=== PATIENT | female | born 1960 | race Caucasian/White ===

== ENCOUNTER 2016-12-14 13:13 | Emergency (ER) | payer BC, MEDICAID ==
[~2016-12-14] VITALS: Ht 152.4 cm; Wt 90.0 kg
[~2016-12-14 13:13] MED LIST: ALPR1TAB2; ATEN25TA; ATEN50TA41 PO; BUPR200T2; DIAZ10TA PO; FURO-93; GABA-826 PO; HYDR12.547 PO; LAMO200T3 PO; METH750T87 PO; OMEP-110 PO; OXCA300T PO; OXYC-223; PARO12.517 PO; PROM50AM6; QUET25TA5 PO; SIMV20TA3 PO; TRAM50TA2 PO
[2016-12-14] MEDS ORDERED: SODIUM CHLORIDE 0.9% 1,000ML IVBOLUS ONE (13:30)
[2016-12-14 14:24] LABS: BLOOD UREA NITROGEN 11 mg/dL (7-18)
[2016-12-14 14:28] LABS: ASPARTATE AMINO TRANSFERASE 16 U/L (15-37)
[2016-12-14 17:09] VITALS: BP 157/72
== END 2016-12-14 17:13 | disposition home or self-care (01) ==
LOC: ED 17:07
DX: R55 Syncope and collapse (principal); G89.29 Other chronic pain; M54.9 Dorsalgia, unspecified; Z86.14 Personal history of Methicillin resistant Staphylococcus aureus infection
CPT/HCPCS: 36415; 70450; 80053; 81003; 85025; 93005; 99285

== ENCOUNTER 2017-11-03 18:27 | Observation (INO) | payer MEDICAID ==
[~2017-11-03] VITALS: Ht 152.4 cm; Wt 87.0 kg
[~2017-11-03 18:27] MED LIST changes: +GABA400C PO; +HYDR-3240 PO; +LAMO100T5 PO; -OXYC-223; +OXYC-306; +QUET100T4 PO
[2017-11-03] MEDS ORDERED: ATOR-2 PO (18:42)
[2017-11-03] MEDS ORDERED: HYDR25TA11 PO (18:42)
[2017-11-03] MEDS ORDERED: QUET100T PO (18:42)
[2017-11-03] MEDS ORDERED: FOLI-17 PO (18:42)
[2017-11-03] MEDS ORDERED: MELO7.5T31 PO (18:42)
[2017-11-03] MEDS ORDERED: BUPR1FIL3 SUBD (18:42)
[2017-11-03 19:17] LABS: BASOPHILS # (AUTO) 0.02 x10^3/uL (0-0.1); BASOPHILS % (AUTO) 1 % (0-1); EOSINOPHILS # (AUTO) 0.12 x10^3/uL (0-0.4); EOSINOPHILS % (AUTO) 3 % (1-7); LYMPHOCYTES # (AUTO) 1.45 x10^3/uL (1-3.4); LYMPHOCYTES % (AUTO) 31 % (22-44); MD NO; MEAN CORPUSCULAR HEMOGLOBIN 30.1 pg (27.0-34.8); MEAN CORPUSCULAR HGB CONC 33.5 g/dL (32.4-35.8); MEAN CORPUSCULAR VOLUME 89.9 fL (80-100); MEAN PLATELET VOLUME 7.4 fL (7.4-10.4); MONOCYTES # (AUTO) 0.42 x10^3/uL (0.2-0.8); MONOCYTES % (AUTO) 9 % (2-9); NEUTROPHILS # (AUTO) 2.75 x10^3/uL (1.8-6.8); NEUTROPHILS % (AUTO) 58 % (42-75); PLATELET COUNT 299 x10^3/uL (130-400); RED BLOOD COUNT 4.39 x10^6/uL (3.82-5.3); RED CELL DISTRIBUTION WIDTH 13.1 % (9.6-15.2)
[2017-11-03 19:18] LABS: ALBUMIN 3.8 g/dL (3.4-5.0); ANION GAP 7 mmol/L (5-15); CALCIUM 9.1 mg/dL (8.5-10.1); CHLORIDE 104 mmol/L (98-107)
[2017-11-03 19:20] LABS: ALANINE AMINOTRANSFERASE 17 U/L (12-78); ALKALINE PHOSPHATASE 102 U/L (45-117); BILIRUBIN,TOTAL 0.5 mg/dL (0.2-1.0); CREATININE 0.65 mg/dL (0.55-1.02); SALICYLATE LEVEL < 1.7 mg/dL (2.8-20.0); TOTAL PROTEIN 7.1 g/dL (6.4-8.2)
[2017-11-03 19:25] LABS: ACETAMINOPHEN < 2 mcg/mL (10-30)
[2017-11-03 19:25] LABS: AMPHETAMINE SCREEN, URINE Negative (Negative); BARBITURATE SCREEN, URINE Negative (Negative); BENZODIAZEPINE SCREEN, URINE Negative (Negative); CANNABINOID SCREEN, URINE Negative (Negative); COCAINE SCREEN, URINE Negative (Negative); METHADONE SCREEN, URINE Negative (Negative); OPIATE SCREEN, URINE Negative (Negative)
[2017-11-03] MEDS ORDERED: LORazepam 1MG TABLET ONE (21:52)
[2017-11-03] MEDS ORDERED: LORazepam 1MG TABLET PO ONE (22:00)
[2017-11-03] MEDS ORDERED: POLYETHYLENE GLYCOL 17 GM PACKET PO PRN (23:00)
[2017-11-03] MEDS ORDERED: ONDANSETRON ODT 4 MG PO PRN (23:00)
[2017-11-03] MEDS ORDERED: BISACODYL 10 MG SUPP PR PRN (23:00)
[2017-11-03] MEDS ORDERED: QUETIAPINE 100MG TABLET ONE (23:13)
[2017-11-03] MEDS ORDERED: GABAPENTIN 400 MG CAPSULE ONE (23:13)
[2017-11-03] MEDS: ATORVASTATIN 20 MG TABLET PO SCH (23:19)
[2017-11-03] MEDS: QUETIAPINE 100MG TABLET PO SCH (23:20)
[2017-11-03] MEDS: MELOXICAM 15 MG TABLET PO SCH (23:20)
[2017-11-03] MEDS: GABAPENTIN 400 MG CAPSULE PO SCH (23:20)
[2017-11-04] MEDS: PAROXETINE HCL 40 MG PO SCH (09:00)
[2017-11-04] MEDS ORDERED: BUPRENORPHINE HCL/NALOXONE 8-2MG FILM SL SCH (09:00)
[2017-11-04] MEDS ORDERED: FOLIC ACID 1 MG TABLET ONE (10:57)
[2017-11-04] MEDS ORDERED: SENNA/DOCUSATE TABLET ONE (10:57)
[2017-11-04] MEDS: SENNA/DOCUSATE TABLET PO SCH (11:14)
[2017-11-04] MEDS: FOLIC ACID 1 MG TABLET PO SCH (11:14)
[2017-11-04] MEDS: MELOXICAM 15 MG TABLET PO SCH ×2 (11:14→20:51)
[2017-11-04 14:51] VITALS: BP 120/65
[2017-11-04 19:59] VITALS: BP 156/82
[2017-11-04] MEDS: GABAPENTIN 400 MG CAPSULE PO SCH (20:13)
[2017-11-04] MEDS: QUETIAPINE 100MG TABLET PO SCH (20:13)
[2017-11-04] MEDS: ATORVASTATIN 20 MG TABLET PO SCH (20:52)
[2017-11-05 07:56] VITALS: BP 137/86
[2017-11-05] MEDS: PAROXETINE HCL 40 MG PO SCH (08:20)
[2017-11-05] MEDS: SENNA/DOCUSATE TABLET PO SCH (08:20)
[2017-11-05] MEDS: FOLIC ACID 1 MG TABLET PO SCH (08:20)
[2017-11-05] MEDS: MELOXICAM 15 MG TABLET PO SCH ×2 (08:20→20:32)
[2017-11-05] MEDS: GABAPENTIN 400 MG CAPSULE PO SCH ×3 (08:20→20:34)
[2017-11-05] MEDS ORDERED: BUPRENORPHINE HCL/NALOXONE 8-2MG FILM SL SCH (09:00)
[2017-11-05] MEDS ORDERED: BUPRENORPHINE/NALOXONE 8-2MG SL SCH (13:30)
[2017-11-05] MEDS ORDERED: LAMO100T PO (14:22)
[2017-11-05 20:21] VITALS: BP 139/85
[2017-11-05] MEDS: ATORVASTATIN 20 MG TABLET PO SCH (20:33)
[2017-11-05] MEDS: QUETIAPINE 100MG TABLET PO SCH (20:33)
[2017-11-06 08:00] VITALS: BP 145/83
[2017-11-06] MEDS: GABAPENTIN 400 MG CAPSULE PO SCH ×3 (08:14→20:35)
[2017-11-06] MEDS: ACETAMINOPHEN 325 MG TABLET PO PRN ×2 (08:15→14:41)
[2017-11-06] MEDS: SENNA/DOCUSATE TABLET PO SCH (09:00)
[2017-11-06] MEDS: FOLIC ACID 1 MG TABLET PO SCH (09:07)
[2017-11-06] MEDS: MELOXICAM 15 MG TABLET PO SCH ×2 (09:08→20:34)
[2017-11-06] MEDS: BUPRENORPHINE/NALOXONE 8-2MG SL SCH (10:18)
[2017-11-06] MEDS: PAROXETINE HCL 40 MG PO SCH (10:19)
[2017-11-06] MEDS: LIDODERM 5% PATCH TD SCH (15:06)
[2017-11-06 19:46] VITALS: BP 132/83
[2017-11-06] MEDS: ATORVASTATIN 20 MG TABLET PO SCH (20:33)
[2017-11-06] MEDS: QUETIAPINE 100MG TABLET PO SCH (20:35)
[2017-11-07] MEDS ORDERED: PAROXETINE 20 MG TABLET ONE (08:28)
[2017-11-07] MEDS: GABAPENTIN 400 MG CAPSULE PO SCH ×3 (08:36→21:04)
[2017-11-07] MEDS: PAROXETINE HCL 40 MG PO SCH (08:36)
[2017-11-07] MEDS: SENNA/DOCUSATE TABLET PO SCH (08:36)
[2017-11-07] MEDS: FOLIC ACID 1 MG TABLET PO SCH (08:37)
[2017-11-07] MEDS: MELOXICAM 15 MG TABLET PO SCH ×2 (08:38→21:05)
[2017-11-07] MEDS: BUPRENORPHINE/NALOXONE 8-2MG SL SCH (08:40)
[2017-11-07 08:41] VITALS: BP 126/64
[2017-11-07] MEDS: LIDODERM 5% PATCH TD SCH (14:47)
[2017-11-07] MEDS ORDERED: LAMOTRIGINE 100 MG TABLET PO SCH (16:00)
[2017-11-07] MEDS: LAMOTRIGINE 100 MG TABLET PO SCH ×2 (16:07→21:04)
[2017-11-07 19:34] VITALS: BP 125/79
[2017-11-07] MEDS: QUETIAPINE 100MG TABLET PO SCH (21:04)
[2017-11-07] MEDS: ATORVASTATIN 20 MG TABLET PO SCH (21:04)
[2017-11-07] MEDS: ACETAMINOPHEN 325 MG TABLET PO PRN (21:23)
[2017-11-08 08:00] VITALS: BP 129/81
[2017-11-08] MEDS: PAROXETINE HCL 40 MG PO SCH (09:00)
[2017-11-08] MEDS: SENNA/DOCUSATE TABLET PO SCH (09:10)
[2017-11-08] MEDS: GABAPENTIN 400 MG CAPSULE PO SCH ×2 (09:10→12:44)
[2017-11-08] MEDS: LAMOTRIGINE 100 MG TABLET PO SCH (09:10)
[2017-11-08] MEDS: FOLIC ACID 1 MG TABLET PO SCH (09:11)
[2017-11-08] MEDS: MELOXICAM 15 MG TABLET PO SCH (09:11)
[2017-11-08] MEDS: BUPRENORPHINE/NALOXONE 8-2MG SL SCH (09:12)
== END 2017-11-08 14:03 ==
LOC: ED 22:01 → INTOOBSV 22:33 → EDIP 22:33 → 2N 11-04 14:32
PROVIDERS: ADMIT Internal Medicine; ATTEND Internal Medicine
DX: R45.851 Suicidal ideations (principal); E78.5 Hyperlipidemia, unspecified; F31.9 Bipolar disorder, unspecified; F43.10 Post-traumatic stress disorder, unspecified; G89.29 Other chronic pain; I10 Essential (primary) hypertension; F41.1 Generalized anxiety disorder; Z82.49 Family history of ischemic heart disease and other diseases of the circulatory system; Z82.5 Family history of asthma and other chronic lower respiratory diseases; Z86.14 Personal history of Methicillin resistant Staphylococcus aureus infection; Z87.820 Personal history of traumatic brain injury
CPT/HCPCS: 36415; 80053; 80307; 80329; 85025; 99285; G0378; Q0177; G0480

== ENCOUNTER 2019-04-06 17:13 | Emergency (ER) | payer MEDICAID ==
[~2019-04-06] VITALS: Ht 152.4 cm; Wt 72.0 kg
[~2019-04-06 17:13] MED LIST changes: +ATOR-2 PO; +BUPR1FIL3 SUBD; +BUPR200T2 PO; +CEFD300C37 PO; +FOLI-17 PO; +HYDR-826 PO; +LAMO100T PO; +MELO7.5T31 PO; -OXCA300T PO; +OXCA300T19 PO; +QUET100T PO
[2019-04-06 17:29] VITALS: BP 116/55
[2019-04-06 18:19] LABS: CULTURE INDICATED? YES; MICROSCOPIC INDICATED
[2019-04-06 18:56] LABS: BASOPHILS # (AUTO) 0.01 x10^3/uL (0-0.1); BASOPHILS % (AUTO) 0 % (0-1); EOSINOPHILS # (AUTO) 0.06 x10^3/uL (0-0.4); EOSINOPHILS % (AUTO) 1 % (1-7); LYMPHOCYTES # (AUTO) 0.97 x10^3/uL (1-3.4); LYMPHOCYTES % (AUTO) 10 % (22-44); MD NO; MEAN CORPUSCULAR HEMOGLOBIN 30.2 pg (27.0-34.8); MEAN CORPUSCULAR HGB CONC 33.2 g/dL (32.4-35.8); MEAN PLATELET VOLUME 7.1 fL (7.4-10.4); MONOCYTES # (AUTO) 0.93 x10^3/uL (0.2-0.8); MONOCYTES % (AUTO) 10 % (2-9); NEUTROPHILS # (AUTO) 7.84 x10^3/uL (1.8-6.8); NEUTROPHILS % (AUTO) 80 % (42-75); PLATELET COUNT 325 x10^3/uL (130-400); RED CELL DISTRIBUTION WIDTH 12.6 % (9.6-15.2)
[2019-04-06] MEDS ORDERED: CEFTRIAXONE PMX 1GM/50ML 50 ML IV ONE (19:00)
[2019-04-06] MEDS ORDERED: SODIUM CHLORIDE 0.9% 1,000ML IVBOLUS ONE (19:00)
[2019-04-06 19:01] LABS: ALANINE AMINOTRANSFERASE 29 U/L (12-78); ALBUMIN 2.6 g/dL (3.4-5.0); ANION GAP 6 mmol/L (5-15); CALCIUM 8.7 mg/dL (8.5-10.1); CHLORIDE 101 mmol/L (98-107)
[2019-04-06 19:04] LABS: ALKALINE PHOSPHATASE 141 U/L (45-117); BILIRUBIN,TOTAL 1.4 mg/dL (0.2-1.0); CREATININE 0.87 mg/dL (0.55-1.02)
[2019-04-06] MEDS ORDERED: CEFTRIAXONE PMX 1GM/50ML 50 ML ONE (19:06)
[2019-04-06] MEDS ORDERED: POTASSIUM CHLORIDE 20 MEQ TAB.ER.PRT PO ONE (19:30)
[2019-04-06] MEDS ORDERED: POTASSIUM CHLORIDE 20 MEQ TAB.ER.PRT ONE (20:00)
== END 2019-04-06 22:43 | disposition home or self-care (01) ==
LOC: ED 22:37
DX: N30.00 Acute cystitis without hematuria (principal); R51 Headache; R53.1 Weakness
CPT/HCPCS: 36415; 70450; 80053; 81001; 83605; 85025; 87040; 87077; 87086; 87186; 96365; 99284; J0696; J7030

== ENCOUNTER 2020-04-15 09:34 | Emergency (ER) | payer MEDICAID ==
[~2020-04-15] VITALS: Ht 152.4 cm; Wt 80.6 kg
[~2020-04-15 09:34] MED LIST changes: -LAMO100T PO; +LAMO100T8 PO; +SIMV20TA19 PO; -SIMV20TA3 PO
[2020-04-15 09:37] VITALS: BP 112/73
== END 2020-04-15 10:39 | disposition home or self-care (01) ==
LOC: ED 10:31
DX: L30.4 Erythema intertrigo (principal); E78.00 Pure hypercholesterolemia, unspecified; G89.29 Other chronic pain; Z90.89 Acquired absence of other organs
CPT/HCPCS: 99282; 99283

== ENCOUNTER 2020-04-17 05:57 | Emergency (ER) | payer MEDICAID ==
[~2020-04-17] VITALS: Ht 152.4 cm; Wt 81.9 kg
--- NOTE | 2020-04-17 06:25 | NUR ---
Patient comes in with complaints of rash/sore under abdominal fold. Patient states that it has been dealing with it for awhile. Took the medication for the yeast infection and now states "I know its infectioned and I need an antibodic." Also patient states that she believes she has a UTI starting and wants to get it under control before it gets worse. Urine collected, provider at bedside
[2020-04-17] MEDS ORDERED: SODIUM CHLORIDE 0.9% 1,000ML IVBOLUS ONE (06:30)
[2020-04-17 06:55] LABS: MICROSCOPIC INDICATED
[2020-04-17 07:17] LABS: BASOPHILS % (AUTO) 1 % (0-1); EOSINOPHILS % (AUTO) 1 % (1-7); LYMPHOCYTES % (AUTO) 14 % (22-44); MEAN CORPUSCULAR HEMOGLOBIN 30.4 pg (27.0-34.8); MEAN PLATELET VOLUME 8.8 fL (7.4-10.4); MONOCYTES % (AUTO) 8 % (2-9); NEUTROPHILS % (AUTO) 77 % (42-75); PLATELET COUNT 221 x10^3/uL (130-400); RED BLOOD COUNT 4.33 x10^6/uL (3.82-5.3); RED CELL DISTRIBUTION WIDTH 12.8 % (9.6-15.2)
[2020-04-17 07:18] LABS: MD NO
[2020-04-17 07:24] LABS: ALBUMIN 3.3 g/dL (3.4-5.0); ANION GAP 5 mmol/L (5-15); CALCIUM 8.7 mg/dL (8.5-10.1); CHLORIDE 111 mmol/L (98-107)
[2020-04-17 07:36] LABS: CREATININE 0.78 mg/dL (0.55-1.02)
[2020-04-17 08:07] VITALS: BP 110/68
== END 2020-04-17 08:51 | disposition home or self-care (01) ==
LOC: ED 06:57
DX: L53.9 Erythematous condition, unspecified (principal); R39.15 Urgency of urination; R00.0 Tachycardia, unspecified
CPT/HCPCS: 36415; 80048; 81001; 82040; 83605; 85025; 87040; 87086; 96360; 96361; 99283; J7030

== ENCOUNTER 2020-08-26 16:16 | Emergency (ER) | payer MEDICAID ==
[~2020-08-26] VITALS: Ht 152.4 cm; Wt 80.2 kg
[~2020-08-26 16:16] MED LIST changes: -FOLI-17 PO; +FOLI1TAB32 PO; +HYDR-2214 PO; -HYDR-3240 PO; -OXYC-306; +OXYC1TAB17
--- NOTE | 2020-08-26 16:47 | NUR ---
PT WALKED BACK FROM TRIAGE WITH CHIEF COMPLAINT OF SOB SINCE YESTERDAY. PT DENIES ANY OTHER SYMPTOMS.
--- NOTE | 2020-08-26 17:45 | NUR ---
NERIS Leary AT BEDSIDE FOR EVALUATION.
--- NOTE | 2020-08-26 17:58 | NUR ---
PT TO IMAGING
[2020-08-26] MEDS ORDERED: SODIUM CHLORIDE FLUSH 10ML SYR IVF ONE (18:00)
--- NOTE | 2020-08-26 18:10 | NUR ---
PT BACK FROM IMAGING, URINE COLLECTED.
[2020-08-26 18:13] VITALS: BP 153/68
[2020-08-26 18:27] LABS: MICROSCOPIC NOT IND
[2020-08-26 18:29] LABS: BASOPHILS % (AUTO) 1 % (0-1); EOSINOPHILS % (AUTO) 2 % (1-7); LYMPHOCYTES % (AUTO) 34 % (22-44); MEAN CORPUSCULAR HGB CONC 34.1 g/dL (32.4-35.8); MEAN PLATELET VOLUME 8.4 fL (7.4-10.4); MONOCYTES % (AUTO) 11 % (2-9); NEUTROPHILS % (AUTO) 53 % (42-75); PLATELET COUNT 242 x10^3/uL (130-400); RED BLOOD COUNT 4.28 x10^6/uL (3.82-5.3); RED CELL DISTRIBUTION WIDTH 12.9 % (9.6-15.2)
[2020-08-26 18:31] LABS: MD NO
[2020-08-26 18:34] LABS: ALANINE AMINOTRANSFERASE 25 U/L (12-78); ALBUMIN 3.8 g/dL (3.4-5.0); ANION GAP 3 mmol/L (5-15); CHLORIDE 111 mmol/L (98-107); CREATININE 0.72 mg/dL (0.55-1.02)
[2020-08-26 18:39] LABS: ALKALINE PHOSPHATASE 114 U/L (45-117); BILIRUBIN,TOTAL 0.4 mg/dL (0.2-1.0); TOTAL PROTEIN 6.8 g/dL (6.4-8.2); TROPONIN I < 0.015 ng/mL (0.000-0.045)
--- NOTE | 2020-08-26 19:07 | NUR ---
It appeared that pt had left. Pt came back several minutes later and DC instructions and rx were reviewed with patient. Pt A&O x 4, steady on feet and ready to leave. Patient/Caregiver given discharge instructions and they have confirmed that they understand the instructions. Patient ambulatory with steady gait.
== END 2020-08-26 19:09 ==
LOC: ED 19:01
DX: R06.00 Dyspnea, unspecified (principal); K59.00 Constipation, unspecified; R94.31 Abnormal electrocardiogram [ECG] [EKG]; E78.00 Pure hypercholesterolemia, unspecified
CPT/HCPCS: 36415; 74022; 80053; 81003; 83880; 84484; 85025; 85379; 93005; 99285